=== PATIENT | male | born 1995 | race Caucasian/White ===

== ENCOUNTER 2016-09-02 09:16 | Inpatient (IN) | payer BC, OTHER ==
[~2016-09-02] VITALS: Ht 185.4 cm; Wt 88.4 kg
--- NOTE | 2016-09-02 10:10 | DIAGNOSTIC IMAGING REPORT ---
CT HEAD WITHOUT CONTRAST (CT) CLINICAL HISTORY: Head and facial trauma. Pain. COMPARISON STUDY: No previous studies for comparison. TECHNIQUE: Axial CT of the brain is performed from the vertex to the skull base. IV contrast was not administered for this examination. CT DOSE: 771.12 mGy.cm FINDINGS: No intra or extra-axial mass lesions are visualized. There is no CT evidence of acute cortical infarction. There is no evidence of midline shift. There is no acute hemorrhage. No calvarial fractures are visualized. There is no evidence of pathologic ventricular dilatation. There is a sphenoid sinus air-fluid level. There is mucosal thickening within ethmoid air cells. There is orbital emphysema on the left. There is a left zygoma fracture. There is a fracture the lateral wall of the left orbit. There is left-sided facial swelling. IMPRESSION: 1. Left-sided facial fractures including a fracture involving the lateral wall of the left orbit and left zygoma 2. Orbital emphysema 3. Left maxillary and sphenoid sinus air-fluid levels 4. No evidence of acute intracranial hemorrhage Electronically signed by: Emre Mann M.D. 09/02/2016 10:09 AM Dictated Date/Time: 09/02/2016 10:07 AM
[2016-09-02] MEDS ORDERED: MoRPHine SULFATE 4 MG/ML 1 ML CARP\\VIAL IV STA ×2 (10:18→10:48)
[2016-09-02] MEDS ORDERED: ONDANSETRON INJ 2 MG/ML 2 ML VIAL IV STA (10:18)
--- NOTE | 2016-09-02 10:20 | DIAGNOSTIC IMAGING REPORT ---
CT FACIAL BONES-MXILLOFAC WITHOUT CT DOSE: CLINICAL HISTORY: Facial pain status post trauma COMPARISON STUDY: No previous studies for comparison. TECHNIQUE: Helical images were acquired in the transverse plane. The study was reviewed and analyzed on the independent 3-D workstation. There is nondisplaced fracture of the left pterygoid plate There is an acute fracture involving the posterior left zygomatic arch, the mid zygomatic arch, as well as a comminuted fracture of the zygomaticomaxillary suture. Both globes appear intact. There is orbital emphysema. There is a displaced fracture involving the anterior wall the left maxillary sinus. There is a displaced fracture involving the lateral wall the left maxillary sinus. There is a fracture the left lamina papyracea. There is a fracture involving the lateral wall the left orbit. There is a left orbital floor fracture. There is subcutaneous gas within the left now are, temporal, and infrazygomatic region. The mandibular condyles appear intact. IMPRESSION: 1. Comminuted depressed left-sided tripod variant fracture. There are comminuted fractures the zygomaticomaxillary suture, the mid zygomatic arch, and the posterior zygomatic arch. There are fractures involving the left lamina papyracea, lateral wall the left orbit, and anterior and lateral blanchard of the left maxillary sinus. There is a left orbital floor fracture. There is a fracture involving the left pterygoid plate. 2. There is associated left-sided facial swelling. There is extensive subcutaneous gas. Electronically signed by: Emre Mann M.D. 09/02/2016 10:19 AM Dictated Date/Time: 09/02/2016 10:09 AM
[2016-09-02] MEDS ORDERED: PIPERACILLIN/TAZOBACTAM 4.5 GM/100ML D5W IV STA (11:38)
[2016-09-02] MEDS ORDERED: ACETAMINOPHEN 325 MG TAB PO PRN (12:15)
[2016-09-02] MEDS ORDERED: KETOROLAC TROMETHAMINE 30 MG/ML VIAL IV. PRN (12:15)
[2016-09-02 12:46] VITALS: O2SAT 95; Ht 185.4 cm; Wt 88.4 kg
--- NOTE | 2016-09-02 13:05 | History and Physical ---
History & Physical H&P dictated. KE
[2016-09-02 13:27] VITALS: BP 117/70; PULSE 83; TEMP 36.3; O2SAT 99
[2016-09-02] MEDS ORDERED: VANCOMYCIN INJ 2,200 MG in SODIUM CHLORIDE 0.9% 500ML 500 ML IV ONE (13:40)
[2016-09-02 13:45] LABS: HEMATOCRIT 39.8 % (42-52); MEAN CELL VOLUME 83.4 fL (80-100); MEAN CORPUSCULAR HEMOGLOBIN 29.8 pg (25-34); MEAN CORPUSCULAR HGB CONC 35.7 g/dl (32-36); MEAN PLATELET VOLUME 11.2 fL (7.4-10.4); PLATELET COUNT 180 K/uL (130-400); RED BLOOD COUNT 4.77 M/uL (4.7-6.1); WHITE BLOOD COUNT 13.63 K/uL (4.8-10.8)
[2016-09-02] MEDS ORDERED: VANCOMYCIN CONSULT ACTIVE PRN (13:45)
[2016-09-02] MEDS ORDERED: PIPERACILL/TAZOBAC CONSULT ACTIVE PRN (13:45)
[2016-09-02 13:58] LABS: INR 1.2 (0.9-1.1); PROTHROMBIN TIME (PATIENT) 12.4 SECONDS (9.0-12.0)
[2016-09-02] MEDS: METHYLPREDNISOLONE IV 60 MG in SYRINGE 0 ML IV SCH ×2 (14:02→22:19)
[2016-09-02] MEDS: D5W AND 1/2NSS + 20MEQ KCL 1,000 ML IV SCH (14:02)
[2016-09-02 14:03] LABS: BASO % 0.1 %; BASO ABS # 0.01 K/uL (0-0.2); COMPLETE YES; IG% 0.2 %; LYMPH % 5.5 %; LYMPH ABS # 0.75 K/uL (1.2-3.4); MONO % 4.3 %; NEUT % 89.9 %
[2016-09-02] MEDS: HYDROmorphone INJ 2 MG/ML SYR/VIAL IV PRN ×2 (14:03→17:33)
[2016-09-02 14:10] LABS: BUN/CREATININE RATIO 16.8 (10-20); CALCIUM 8.8 mg/dl (8.5-10.1); CREATININE 0.87 mg/dl (0.60-1.40); POTASSIUM 4.1 mmol/L (3.5-5.1)
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
[2016-09-02 14:13] LABS: ALB/GLOB RATIO 1.6 (0.9-2)
[2016-09-02] MEDS ORDERED: LORAZEPAM INJ 0.5 MG in SYRINGE 0.75 ML IV PRN (15:15)
[2016-09-02] MEDS ORDERED: OXYCODONE HCL IR 5 MG TAB (IMMEDIATE RELEASE) PO PRN (15:15)
[2016-09-02 15:24] VITALS: BP 130/76; PULSE 86; TEMP 36.4; O2SAT 96
[2016-09-02 16:00] VITALS: O2SAT 96
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
[2016-09-02] MEDS: AMPICILLIN/SULBACTAM SOD INJ 3,000 MG in SODIUM CHLORIDE 0.9% 100ML 100 ML IV SCH ×2 (16:30→22:19)
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
[2016-09-02 18:00] VITALS: BP 120/67; PULSE 76; TEMP 36.4; O2SAT 97
--- NOTE | 2016-09-02 18:00 | EMERGENCY ROOM VISIT NOTE ---
ED Visit Note First contact with patient: 09:22 Chief Complaint: Left facial pain. History of Present Illness: Mr. Morris is a 21-year-old white male who ambulates into the ED complaining of left-sided facial pain. Patient and friends report approximately 30 minutes ago he was playing baseball with a local university team. The ball was struck by another player and then struck him over the left side of the face. There is no reported loss of consciousness at the time of the injury. Since the injury he has been having facial pain and denies dizziness, headache, lightheadedness, neck/back pain, nausea/vomiting. Additionally friends report that the patient has been his normal self and has had no personality changes and they have not observed any abnormal neurological symptoms. Currently patient is complaining of a combination of sharp, throbbing and achy left-sided facial pain. Extending from over the supraorbital ridge to the mandible. He rates his discomfort 9/10. The pain is nonradiating. His pain worsens with palpation and opening his mandible. He has not identified any alleviating factors related to the pain. He has not had any medication for pain prior to arrival at the hospital. His eye is swollen shut but he reports before being swollen shut he had no visual changes. He also denies neck pain, back pain, chest pain, shortness of breath, abdominal pain, nausea, vomiting, and upper and lower extremity weakness. Review of Systems: As noted above in history of present illness. All body systems were reviewed and found to be negative as noted above. Past Medical History: Patient denies. Current Medications: Patient denies. Allergies to Medications: Patient denies. Social History: Patient is University student; he feels safe in his home environment; he denies tobacco, alcohol or illicit drug use. Tetanus Immunization Status: Patient reports up-to-date. Physical Examination: Vital Signs: Date Time Temp Pulse Resp B/P Pulse Ox O2 Delivery O2 Flow Rate FiO2 09/02/16 12:01 50 18 142/80 95 Room Air 09/02/16 10:29 57 09/02/16 10:25 77 18 141/75 100 Room Air 09/02/16 10:22 100 Room Air 09/02/16 09:18 36.8 78 18 134/86 97 Room Air GENERAL: 21-year-old male in moderate distress due to pain, nontoxic-appearing, afebrile and hemodynamically stable. NEUROLOGICAL: Awake, alert and oriented to person, place and time. Answering questions appropriately and following commands. Normal gait. Good hand eye coordination. No focal motor sensory deficits. Cranial nerves II through XII grossly intact. Good short-term and long-term recall. SKIN: Warm, dry and pink. Superficial abrasion noted just inferior to the left eye with no active bleeding. HEENT: Atraumatic and normocephalic. Skull: No bony deformities, bony crepitus , depressions. No raccoon's eyes or patrick signs. There was dried blood in both nostrils but no active bleeding or drainage. Face: Significant swelling, tenderness and bony deformity over the supraorbital ridge, the inferior orbital ridge, zygomatic bone, zygomatic arch. Mild tenderness over the body of the mandible without any obvious deformity or crepitus. I do not appreciate any new malocclusion but he has significant tenderness and opening his mouth. No intraoral trauma. I do not appreciate any dental trauma; there was a report of a possible missing tooth but I was not able to perceive this on my examination. PERRLA. EOMI without nystagmus and no signs of muscle entrapment. Sclerae white and conjunctiva is pink. Anterior chamber is clear and no hyphemas are seen. No light sensitivity or tearing. There was no blood in the oral cavity. The airway was patent. Speech was clear. Speech normal and clear. No lymphadenopathy. Trachea midline. No jugular venous distention. BACK: No tenderness over the bony cervical and thoracic spine. Full range of motion of the cervical spine. No CVA tenderness. THORAX: Lungs sounds are clear to auscultation and equal bilaterally with symmetrical chest wall. No wheezing, rales or rhonchi. ABDOMEN: Flat, soft and nontender. Positive bowel sounds in all quadrants. No guarding, rigidity or organomegaly. EXTREMITIES: No tenderness in the shoulder, upper arms, elbows or forearms. All distal neurovascular statuses are intact and equal bilaterally. ED Course: Patient is assessed as noted above. Head CT: Was reviewed by myself and the radiologist and shows no acute intracranial abnormalities or skull fractures. Facial CT: Was reviewed by myself and read by the radiologist showing a comminuted depressed left sided tripod Malou fracture; comminuted fracture is of the zygomaticomaxillary suture, the mid zygomatic arch in the posterior zygomatic arch. There are also fractures involving the left lamina papyracea, lateral wall of the left orbit and anterior and lateral blanchard of the left maxillary sinus. Left orbital wall fracture and fracture involving the left pterygoid palate. This is associated with it moderate amount of left-sided facial swelling and extensive subcutaneous air. Patient's case was reviewed with Dr. Del Valle; we agreed on diagnostic approach, treatment, disposition and plan. Patient was given a total of 8 mg of morphine IV for pain and 4 mg of Zofran IV. Additionally he received 4.5 gm of Zosyn IV for antibiotic coverage. Patient's case was consulted with facial surgery at [facility], Dr. Rey Pal; he recommended antibiotic coverage, mechanical liquid/soft tissue diet, ophthalmology evaluation, outpatient follow-up. Patient's case was consulted with case management and Dr. Swenson, hospitalist , for medical observation/admission. Patient's case was consulted with Dr. Wells, auto inspector; for specialty care and treatment. At the patient's request I did speak an update his mother about his injuries. Patient was educated about tonight's findings. Clinical Impression: Multiple left-sided facial fractures. Decision-Making: Initially my differential diagnosis I considered left-sided facial fractures, intracranial bleed, skull fracture, left eye injury and other causes. Disposition and Plan: Patient be brought in the hospital for observation/ admission by Dr. Swenson; please see his notes and orders for final disposition and plan.
[2016-09-02] MEDS ORDERED: ONDANSETRON INJ 2 MG/ML 2 ML VIAL IV PRN (18:15)
[2016-09-02] MEDS ORDERED: ONDANSETRON INJ 2 MG/ML 2 ML VIAL ONE (18:57)
[2016-09-02] MEDS ORDERED: PIPERACILL/TAZOBAC IV 4.5 GM in DEXTROSE 5% 100ML 100 ML IV SCH (20:00)
[2016-09-02] MEDS: VANCOMYCIN INJ 1,350 MG in SODIUM CHLORIDE 0.9% 250ML 250 ML IV SCH (22:19)
[2016-09-02 23:20] VITALS: BP 121/70; PULSE 58; TEMP 36.7; O2SAT 97
[2016-09-03] MEDS ORDERED: ONDANSETRON HOME PACK 4MG OD TAB PO SCH
[2016-09-03] MEDS ORDERED: PERCOCET HOME PACK PO SCH
[2016-09-03] MEDS: HYDROmorphone INJ 2 MG/ML SYR/VIAL IV PRN ×3 (00:46→09:10)
[2016-09-03] MEDS: AMPICILLIN/SULBACTAM SOD INJ 3,000 MG in SODIUM CHLORIDE 0.9% 100ML 100 ML IV SCH ×3 (03:12→15:42)
[2016-09-03] MEDS: D5W AND 1/2NSS + 20MEQ KCL 1,000 ML IV SCH (03:14)
[2016-09-03] MEDS: METHYLPREDNISOLONE IV 60 MG in SYRINGE 0 ML IV SCH ×2 (05:52→14:06)
[2016-09-03] MEDS: VANCOMYCIN INJ 1,350 MG in SODIUM CHLORIDE 0.9% 250ML 250 ML IV SCH (06:22)
[2016-09-03 06:44] LABS: CREATININE 0.81 mg/dl (0.60-1.40)
[2016-09-03 07:12] VITALS: BP 115/70; PULSE 60; TEMP 36.6; O2SAT 97
[2016-09-03 15:13] VITALS: BP 112/61; PULSE 62; TEMP 36.7; O2SAT 98
--- NOTE | 2016-09-03 16:53 | Discharge Instructions ---
Discharge Instructions Admission Reason for Admission: Facial Contusion,Multiple Facial Bone Fx Discharge Discharge Diagnosis / Problem: Mutiple facial bone fractures, Contusion to left face. Discharge Goals Goal(s): Decrease discomfort, Diagnostic testing Activity Recommendations Activity Limitations: as noted below Exercise/Sports Limitations: until after follow-up appointment Shower/Bathe: no limitations Avoid blowing nose. . Instructions / Follow-Up Instructions / Follow-Up May use ice bag or cold compresses as needed for swelling. Follow up Dr. Rey Pal M.D., plastic surgeon at: [facility] [address] [place] [address] A, [address] [place] [address] / I will ask our clinical coordinator to call Sunday to schedule you an appointment with in the next 3 days. Expect a call from [facility] regarding you appointment. If you do not hear word from us either call Lucila Lawson at or perhaps call Dr. Pal's office directly. I hand wrote the following scripts for you to take: Oxycodone/APAP 5/325mg take 1 po for moderate pain or 2 po for severe pain Q 4 hours as needed Cefdinir 300mg take 2 capsules by mouth daily. Medrol dose pack use as directed. Recommended diet is liquids and soft foods, i.e. foods not requiring forceful chewing. Current Hospital Diet Patient's current hospital diet: Full Liquid Diet Discharge Diet Recommended Diet: Full Liquid Diet Diet Texture: Mechanical Soft (ground) Procedures Procedures Performed: None. Pending Studies Studies pending at discharge: no Laboratory Results Last 24 Hours Test 09/03/16 06:00 Creatinine 0.81 mg/dl Est Creatinine Clear Calc Drug Dose 161.6 ml/min Estimated GFR () 146.2 Estimated GFR (Non- 126.2 Test 09/02/16 13:30 09/03/16 06:00 White Blood Count 13.63 H Red Blood Count 4.77 Hemoglobin 14.2 Hematocrit 39.8 L Mean Corpuscular Volume 83.4 Mean Corpuscular Hemoglobin 29.8 Mean Corpuscular Hemoglobin Concent 35.7 Platelet Count 180 Mean Platelet Volume 11.2 H Neutrophils (%) (Auto) 89.9 Lymphocytes (%) (Auto) 5.5 Monocytes (%) (Auto) 4.3 Eosinophils (%) (Auto) 0.0 Basophils (%) (Auto) 0.1 Neutrophils # (Auto) 12.25 H Lymphocytes # (Auto) 0.75 L Monocytes # (Auto) 0.59 Eosinophils # (Auto) 0.00 Basophils # (Auto) 0.01 RDW Standard Deviation 39.5 RDW Coefficient of Variation 13.0 Immature Granulocyte % (Auto) 0.2 Immature Granulocyte # (Auto) 0.03 H Prothrombin Time 12.4 H Prothrombin Time INR 1.2 H Sodium Level 141 Potassium Level 4.1 Chloride Level 108 H Carbon Dioxide Level 24 Anion Gap 9.0 Blood Urea Nitrogen 15 Creatinine 0.87 0.81 Est Creatinine Clear Calc Drug Dose 150.5 161.6 Estimated GFR () 142.0 146.2 Estimated GFR (Non- 122.5 126.2 BUN/Creatinine Ratio 16.8 Random Glucose 114 H Calcium Level 8.8 Total Bilirubin 1.1 H Aspartate Amino Transferase (AST) 17 Alanine Aminotransferase (ALT) 26 Alkaline Phosphatase 74 Total Protein 6.6 Albumin 4.1 Globulin 2.5 Albumin/Globulin Ratio 1.6 Last 24 Hours Test 09/03/16 06:00 Creatinine 0.81 mg/dl Est Creatinine Clear Calc Drug Dose 161.6 ml/min Estimated GFR () 146.2 Estimated GFR (Non- 126.2 Medical Emergencies . Who to Call and When: Medical Emergencies: If at any time you feel your situation is an emergency, please call 911 immediately. . Non-Emergent Contact Non-Emergency issues call your: Hospital Doctor Contact Number: Dr. Urbano Amador's cell #. . . "Provider Documentation" section prepared by Urbano Amador. VTE Core Measure Inpt VTE Proph given/why not?: Dimple Reyna, SCD's
[2016-09-03 17:38] VITALS: BP 112/61; PULSE 62; TEMP 36.7; O2SAT 98
--- NOTE | 2016-09-03 17:47 | Discharge Summary ---
Discharge Summary Admission Date: Sep 02, 2016 at 12:15 Discharge Date: Sep 03, 2016 Discharge Disposition: Home Principal Diagnosis: Multiple facial bone fractures (left), facial contusions Problems/Secondary Diagnoses: Left conjunctival hemorrhage, mild hemorrhage to the retina temporally. Procedures: None. Consultations: Ophthalmology, Dr. Hemanth Perea M.D. Infectious disease, Dr. Bebeto Bower M.D. Phone consultation from ED physician to [facility] Plastic surgeon, Dr. Rey Pal M.D. Medication Reconciliation Medication Profile: No Active Prescriptions or Reported Meds Discharge Exam Hand written scripts for the follow medications: Omnicef 300mg 2 po daily for 10 days #20/0 Zofran ODT 4mg po Q 6 hours prn nausea #20/1 Oxycodone/APAP 5/325mg take 1 po for moderate or 2 for severe pain Q 4 hours as needed #60/0 Medrol dose pack as directed #1/0. Recommended diet: liquids and soft foods Avoid nose blowing May use ice packs and /or cold compresses to help with the swelling. ROS: A 10 system review was performed and all were negative except the following : + nausea and 1 episode of vomiting this am (likely due to Dilaudid dose), pain to left cheek and around the left eye. He has no headache. There is no loss of vision or visual field per patient. GEN: Awake, alert, and oriented x 3. Not in acute distress HEENT: Tm's intact, no inflammation, no hemotympanum. EOMI, PERRLA. subconjunctival hemorrhage left eye. Swelling around eye and left cheek is improved by 50%. He is able to open his left eye. + diffuse bruising Left periorbital area and Left Cheek. Neck: Soft, supple Lungs: CTA b/l, no r/r/w Heart: REG, nrl S1S2 without murmurs, rubs or gallops Abdomen: Soft, NT, ND, + BS EXT: No C/C/E NEURO: CN's II-XII grossly intact, non-focal Skin: warm, dry, no rashes PSYCH: pleasant, cooperative, no signs of significant anxiety or depression. Hospital Course This 21y/o male was struck in the left face with a baseball. He did not lose consciousness. Pain and swelling began immediately and he came to ED for evaluation. Ophthalmology was consulted while the patient was in the ED. The following is an excerpt of the consult note specifically the impression: ASSESSMENT: The patient has multiple facial fractures including orbital floor and lateral blanchard of the orbit. The globe appears primarily uninjured with the exception of some superficial bleeding beneath the conjunctiva and an area of mild hemorrhaging in the retina temporally, which could represent an area of commotio retinae. The exam is somewhat limited at the bedside and also was difficult due to significant eyelid swelling. I would recommend a repeat ophthalmological examination in a week or two. It is my understanding that Mr. Morrsi will be transferred to another facility for repair of his fractures. Depending on where he winds up, the ophthalmological examination could be done by me or by a more readily available it security consultant at his new location. Please call [phone] with questions. [id number] S: ES Hemanth Perea M.D. A CT scan of the facial bones was performed with the impression as follows: IMPRESSION: 1. Comminuted depressed left-sided tripod variant fracture. There are comminuted fractures the zygomaticomaxillary suture, the mid zygomatic arch, and the posterior zygomatic arch. There are fractures involving the left lamina papyracea, lateral wall the left orbit, and anterior and lateral blanchard of the left maxillary sinus. There is a left orbital floor fracture. There is a fracture involving the left pterygoid plate. 2. There is associated left-sided facial swelling. There is extensive subcutaneous gas. Electronically signed by: Emre Mann M.D. 09/02/2016 10:19 AM Dictated Date/Time: 09/02/2016 10:09 AM The ED physician Dr. Del Valle discussed the patient's case with facial surgery at [facility], Dr. Rey Pal; who recommended antibiotic coverage, mechanical liquid/soft tissue diet, ophthalmology evaluation, outpatient follow-up. I admitted the patient for pain control, and started him on IV Unasyn and IV Vancomycin. Dr. Bower, infectious disease, was consulted to assist with antibiotic choice. A nasal MRSA swab was acquired and being negative the Vancomycin was stopped. I ordered Solumedrol 60mg IV Q 8hrs to reduce inflammation and swelling which should help with the pain as well. He was placed on a full liquid diet. The patient did very well overnight. He felt that he could control his pain with oral medication. The swelling was reduced by 50%. He did not have any loss of vision in his left eye. I felt comfortable discharging the patient to which both he and his mother were in agreement. I asked our nurse navigator to schedule an appointment with Dr. Pal this coming , sun, or (09-05, 09-06, or 09-07) The patient was given a disc of the CT scan to take with him to that appointment. Total Time Spent: Greater than 30 minutes This includes examination of the patient, discharge planning, medication reconciliation, and communication with other providers. Discharge Instructions Please refer to the electronic Patient Visit Report (Discharge Instructions) for additional information. Follow-Up Rey Pal M.D. this week at [facility]. I gave the patient my personal cell # to call for any questions or non-emergent issues that may arise as he does not have a PCP in this area.
[2016-09-04] MEDS ORDERED: VANCOMYCIN TROUGH ONE (05:30)
== END 2016-09-03 18:45 | disposition home or self-care (01) | DRG 86 ==
LOC: ENRESERVTM → ENRESERVDT → C.EDB 09:18 → C.MED 12:15 → C.MSW 18:15
PROVIDERS: ADMIT Hospitalist; ATTEND Hospitalist
DX: S02.19XA Other fracture of base of skull, initial encounter for closed fracture (principal); S02.40DA Maxillary fracture, left side, initial encounter for closed fracture; S02.32XA Fracture of orbital floor, left side, initial encounter for closed fracture; S05.8X2A Other injuries of left eye and orbit, initial encounter; S02.40FA Zygomatic fracture, left side, initial encounter for closed fracture; W21.03XA Struck by baseball, initial encounter; Y92.320 Baseball field as the place of occurrence of the external cause; Y93.64 Activity, baseball; Y99.8 Other external cause status; H11.32 Conjunctival hemorrhage, left eye